=== PATIENT | female | born 1960 | race Caucasian/White ===

== ENCOUNTER → 2017-08-29 10:00 | Outpatient (REF) | payer OTHER, SELFPAY ==
[2017-08-29 13:59] LABS: Basophils # 0.1 K/mm3 (0-0.2); Basophils % 0.8 % (0.1-2.0); Eosinophils # 0.3 K/mm3 (0.0-0.4); Eosinophils % 3.5 % (0.1-12.0); Hematocrit 46.3 % (37.0-47.0); Hemoglobin 14.7 g/dL (12.2-16.2); Lymphocytes # 2.1 K/mm3 (0.7-4.5); Lymphocytes % 25.8 K/mm3 (10-50); Mean Corpuscular HGB Conc 31.6 g/dL (31.8-35.4); Mean Corpuscular Volume 91.8 fl (81-99); Mean Platelet Volume 9.4 fl (7.4-10.4); Monocytes # 0.4 K/mm3 (0.1-1.0); Monocytes % 5.4 % (1.7-9.3); Neutrophils # 5.2 K/mm3 (1.8-7.8); Neutrophils % 64.4 % (37.0-80.0); Platelet Count 282 K/mm3 (142-424); Red Blood Count 5.05 M/mm3 (4.20-5.40); Red Cell Distribution Width 13.5 % (11.5-17.5); White Blood Count 8.1 K/mm3 (4.8-10.8)
[2017-08-29 14:07] LABS: Hemoglobin A1C 5.3 % (0.0-7.0)
[2017-08-29 15:17] LABS: Alanine Aminotransferase 29 U/L (12-78); Albumin Level 3.9 gm/dL (3.4-5.0); Albumin/Globulin Ratio 1.4 (1.1-1.8); Alkaline Phosphatase 83 U/L (46-116); Anion Gap 10.5 mEq/L (5-15); Aspartate Amino Transferase 16 U/L (15-37); Bilirubin,Total 0.5 mg/dL (0.2-1.0); Blood Urea Nitrogen 17 mg/dL (7-18); Calcium 9.4 mg/dL (8.5-10.1); Carbon Dioxide 30 mmol/L (21.0-32.0); Chloride 106 mmol/L (98-107); Chol/HDL Ratio 2.7 (1-3.5); Cholesterol 168 mg/dL (140-200); Creatinine,Serum 0.55 mg/dL (0.55-1.02); Estimated Glomerular Filt Rate 114 ml/min (>60); Free T4 (Free Thyroxine) 0.94 ng/dl (0.76-1.46); GFR (African American) 138 ML/MIN (>60); Globulin 2.7 gm/dl (1.3-3.2); Glucose 89 mg/dL (74-106); HDL Cholesterol 62 mg/dL (29-89); LDL Cholesterol 94 mg/dL (0-130); Potassium 4.5 mmoL/L (3.5-5.1); Sodium 142 mmol/L (136-145); Thyroid Stimulating Hormone 2.26 uIU/ml (0.358-3.740); Total Protein,Serum 6.6 gm/dL (6.4-8.2); Triglycerides 62 mg/dL (30-200); VLDL Cholesterol 12 mg/dL (0-40)
[2017-08-29 15:51] LABS: Amphetamine/Metha Screen,Urine Negative ng/mL (<1000); Barbiturates Screen,Urine Negative ng/mL (<200); Benzodiazepines Screen,Urine Negative ng/mL (200); Cannabinoid Screen,Urine Negative ng/mL (<50); Cocaine Screen,Urine Negative ng/g (<300); Methadone Screen,Urine Negative ng/mL (<300); Opiate Screen,Urine Negative ng/mL (<300); Phencyclidine Screen,Urine Negative ng/mL (<25)
[2017-08-31 06:45] LABS: Vitamin D 25 Hydroxy 9.9 ng/mL (30.0-100.0)
== END ==
LOC: LAB 10:00
PROVIDERS: Visit Provider Nurse Practitioner Family
DX: R53.83 Other fatigue (principal); Z79.899 Other long term (current) drug therapy
CPT/HCPCS: 80053; 80061; 80305; 82652; 83036; 84439; 84443; 85025

== ENCOUNTER → 2018-01-06 08:54 | Outpatient (CLI) | payer OTHER, SELFPAY ==
[2018-01-06 14:12] LABS: Amphetamine/Metha Screen,Urine Negative ng/mL (<1000); Barbiturates Screen,Urine Negative ng/mL (<200); Benzodiazepines Screen,Urine Negative ng/mL (<200); Cannabinoid Screen,Urine Negative ng/mL (<50); Cocaine Screen,Urine Negative ng/mL (<300); Methadone Screen,Urine Negative ng/mL (<300); Opiate Screen,Urine Negative ng/mL (<300); Phencyclidine Screen,Urine Negative ng/mL (<25)
== END ==
PROVIDERS: Visit Provider Nurse Practitioner Family
DX: Z79.899 Other long term (current) drug therapy (principal)
CPT/HCPCS: 80305

== ENCOUNTER → 2019-04-02 13:03 | Outpatient (POV) | payer BC, SELFPAY | PROVIDERS: Visit Provider Specialist | DX: M79.642 Pain in left hand (principal); M79.641 Pain in right hand; R20.0 Anesthesia of skin; R20.2 Paresthesia of skin | CPT/HCPCS: 95886; 95909 ==

== ENCOUNTER → 2019-11-02 15:48 | Outpatient (CLI) | payer OTHER, SELFPAY ==
--- NOTE | 2019-11-02 15:53 | XR_ITS ---
PROCEDURE: XR CERVICAL SPINE 3V CLINICAL INDICATION: numbess Numbness COMPARISON: And tingling of the arms FINDINGS: No fracture or dislocation. No lytic or blastic change. There is normal mineralization. There is degenerative disc disease at C5-C6 C6-C7 and C7-T1. There is mild facet arthritic changes from C7-T1. Other findings:None. IMPRESSION: Degenerative changes otherwise negative Dictated by: Go Bob MD 11/02/2019 16:11 Electronically signed by Go Bob MD in [place] 11/02/2019 16:11
== END ==
PROVIDERS: PCP Nurse Practitioner Family; Visit Provider Nurse Practitioner Family
DX: R20.0 Anesthesia of skin (principal)
CPT/HCPCS: 72040

== ENCOUNTER → 2020-01-01 13:44 | Outpatient (CLI) | payer OTHER, SELFPAY ==
[2020-01-01 14:03] LABS: Alanine Aminotransferase 30 U/L (12-78); Albumin Level 4.3 g/dl (3.5-5.0); Albumin/Globulin Ratio 1.6 (1.1-1.8); Alkaline Phosphatase 97 U/L (38-126); Anion Gap 13.8 mEq/L (5-15); Aspartate Amino Transferase 26 U/L (14-36); Bilirubin,Total 0.2 mg/dl (0.2-1.3); Blood Urea Nitrogen 18 mg/dl (7-17); Calcium 10.2 mg/dl (8.4-10.2); Carbon Dioxide 28 mmol/L (22.0-30.0); Chloride 99 mmol/L (98-107); Chol/HDL Ratio 2.5 (1-3.5); Cholesterol 173 mg/dl (140-200); Estimated Glomerular Filt Rate 102 ml/min (>60); GFR (African American) 123 ML/MIN (>60); Globulin 2.7 g/dL (1.3-3.2); Glucose 114 mg/dl (74-100); HDL Cholesterol 70 mg/dl (40-60); Potassium 3.8 mmoL/L (3.5-5.1); Sodium 137 mmol/L (136-145); Triglycerides 244 mg/dl (30-150); VLDL Cholesterol 49 mg/dL (0-40)
[2020-01-01 14:15] LABS: Direct LDL Cholesterol 92.25 mg/dL (100-129)
[2020-01-01 14:21] LABS: Free T4 (Free Thyroxine) 1.02 ng/dl (0.78-2.19)
[2020-01-01 14:22] LABS: 25-OH Vitamin D, Total < 12.8 ng/mL (30-100)
[2020-01-01 14:29] LABS: Basophils # 0.1 K/mm3 (0-0.2); Basophils % 0.6 % (0.1-2.0); Eosinophils # 0.3 K/mm3 (0.0-0.4); Hemoglobin 15.2 g/dL (12.2-16.2); Lymphocytes # 2.4 K/mm3 (0.7-4.5); Lymphocytes % 22.3 % (10-50); Mean Corpuscular HGB Conc 33.9 g/dL (31.8-35.4); Mean Corpuscular Hemoglobin 30.4 pg (27.0-31.2); Mean Corpuscular Volume 89.6 fl (81-99); Monocytes # 0.5 K/mm3 (0.1-1.0); Neutrophils # 7.4 K/mm3 (1.8-7.8); Neutrophils % 69.1 % (37.0-80.0); Platelet Count 379 K/mm3 (142-424); Red Blood Count 5.02 M/mm3 (4.20-5.40); Red Cell Distribution Width 13.7 % (11.5-17.5); White Blood Count 10.7 K/mm3 (4.8-10.8)
[2020-01-01 14:35] LABS: Thyroid Stimulating Hormone 2.47 uIU/mL (0.465-4.68)
== END ==
LOC: LAB.DROPOF 13:45
PROVIDERS: Visit Provider Emergency Medicine
DX: E55.9 Vitamin D deficiency, unspecified (principal); E66.9 Obesity, unspecified
CPT/HCPCS: 80053; 80061; 82306; 84439; 84443; 85025

== ENCOUNTER → 2020-08-08 17:30 | Outpatient (CLI) | payer BC, SELFPAY ==
--- NOTE | 2020-08-08 17:40 | XR_ITS ---
PROCEDURE: XR FOOT LT MIN 3V CLINICAL INDICATION: L Foot pain COMPARISON: No exams were available for comparison FINDINGS: No fracture or dislocation. No lytic or blastic change. There is normal mineralization. The joint spaces are well-preserved. No significant degenerative/arthritic changes. No erosive changes evident. Other findings:There is a small calcaneal spur. Small ossicles present along the dorsal aspect of the talonavicular joint and could be due to an old injury. There are mild osteoarthritic changes of the ankle. IMPRESSION: No acute findings. Dictated by: Go Bob MD 08/08/2020 22:27 Go Bob MD in [place] 08/08/2020 22:27
== END ==
LOC: RAD 17:34
PROVIDERS: PCP Emergency Medicine; Visit Provider Nurse Practitioner Family
DX: M79.672 Pain in left foot (principal)
CPT/HCPCS: 73630

== ENCOUNTER → 2020-09-04 14:57 | Outpatient (CLI) | payer BC, SELFPAY ==
--- NOTE | 2020-09-04 15:00 | XR_ITS ---
PROCEDURE: XR FOOT WT BEARING LT 3V CLINICAL INDICATION: foot pain Ankle pain COMPARISON: CR XR FOOT LT MIN 3V from 08/08/2020 CR XR ANKLE WT BEARING LT MIN 3V from 09/04/2020 FINDINGS: Normal alignment. Small calcaneal spur. No acute fracture or dislocation. Ununited ossification center noted at the base of the 5th metatarsal. There is minimal spurring at the distal aspect of the medial malleolus. Talar dome has an unremarkable appearance. IMPRESSION: No acute findings. Dictated by: Go Bob MD 09/04/2020 16:01 Go Bob MD in [place] 09/04/2020 16:01
== END ==
LOC: RAD 14:58
PROVIDERS: PCP Emergency Medicine; Visit Provider Podiatrist
DX: M79.672 Pain in left foot (principal)
CPT/HCPCS: 73610; 73630

== ENCOUNTER 2021-06-14 21:01 | Emergency (ER) | payer BC, SELFPAY ==
[2021-06-14 21:01] VITALS: BP 159/92; PULSE 93; RESP 20; TEMP 37.1; O2SAT 99; BMI 102.7; BMI 46.5
--- NOTE | 2021-06-14 21:01 | ECG_ITS ---
APPROVED REPORT Exam: Resting ECG HR:91 bpm ECG Measurements Heart Rate 91 AXES ME 176 P -11 QRSd 91 QRS -32 QT 333 T 51 QTc 382 Conclusion SINUS RHYTHM LEFT AXIS DEVIATION [QRS AXIS < -30] POSSIBLE ANTERIOR MYOCARDIAL INFARCTION , OF INDETERMINATE AGE [30 ms Q WAVE IN V3/V4, OR R < 0.2 mV IN V4] ABNORMAL ECG UNCONFIRMED REPORT Electronically signed by : Larry Fisher MD 06/15/2021 17:26:49
--- NOTE | 2021-06-14 21:05 | XR_ITS ---
PROCEDURE INFORMATION: Exam: XR Chest Exam date and time: 06/14/2021 9:05 PM Age: 60 years old Clinical indication: Pain; Chest pressure; Additional info: Chest pain TECHNIQUE: Imaging protocol: XR of the chest. Views: 2 views. COMPARISON: CR XR CERVICAL SPINE 3V 11/02/2019 3:56 PM FINDINGS: Lungs: Unremarkable. No consolidation. Pleural spaces: Unremarkable. No pleural effusion. No pneumothorax. Heart/Mediastinum: Unremarkable. No cardiomegaly. Bones/joints: Unremarkable. Organs: Cholecystectomy has been performed. IMPRESSION: No acute findings.
--- NOTE | 2021-06-14 21:17 | PC.NURSE ---
Pt gone to rad
--- NOTE | 2021-06-14 21:20 | PC.NURSE ---
Pt back from rad
[2021-06-14 21:29] LABS: Basophils # 0.3 K/mm3 (0-0.2); Basophils % 2.3 % (0.1-2.0); Eosinophils # 0.2 K/mm3 (0.0-0.4); Eosinophils % 1.5 % (0.1-12.0); Hematocrit 48.6 % (37.0-47.0); Hemoglobin 15.2 g/dL (12.2-16.2); Lymphocytes % 8.9 % (10-50); Mean Corpuscular HGB Conc 31.2 g/dL (31.8-35.4); Mean Corpuscular Hemoglobin 29.1 pg (27.0-31.2); Mean Corpuscular Volume 93.3 fl (81-99); Mean Platelet Volume 8.6 fl (7.4-10.4); Monocytes # 0.7 K/mm3 (0.1-1.0); Monocytes % 5.8 % (1.7-9.3); Neutrophils # 9.2 K/mm3 (1.8-7.8); Neutrophils % 81.5 % (37.0-80.0); Platelet Count 290 K/mm3 (142-424); Red Blood Count 5.21 M/mm3 (4.20-5.40); Red Cell Distribution Width 14.2 % (11.5-17.5); White Blood Count 11.3 K/mm3 (4.8-10.8)
[2021-06-14 21:32] LABS: Influenza A, PCR Not Detected (NotDetected); Influenza B, PCR Not Detected (NotDetected)
[2021-06-14 21:32] LABS: Amylase 58 U/L (30-110); Anion Gap 12.2 mEq/L (5-15); Blood Urea Nitrogen 14 mg/dl (7-17); Calcium 10.1 mg/dl (8.4-10.2); Carbon Dioxide 28 mmol/L (22.0-30.0); Chloride 101 mmol/L (98-107); Creatinine Clearance Estimated 53 mL/min (50-200); Estimated Glomerular Filt Rate 85 ml/min (>60); GFR (African American) 103 ML/MIN (>60); Glucose 108 mg/dl (74-100); Potassium 4.2 mmoL/L (3.5-5.1); Sodium 137 mmol/L (136-145)
[2021-06-14 21:37] LABS: Lipase 49 U/L (23-300)
[2021-06-14 21:38] LABS: C-Reactive Protein 24.7 mg/L (0-4)
[2021-06-14 21:46] LABS: NT Pro Brain Natriuretic Pep. 54.3 pg/mL (0-125)
[2021-06-14 21:49] LABS: Troponin I < 0.01 ng/ml (0.00-0.034)
[2021-06-14 21:55] LABS: Procalcitonin 0.063 ng/mL (0.0-2.0)
[2021-06-14 22:15] LABS: Erythrocyte Sedimentation Rate 10 mm/hr (0-30)
[2021-06-14 22:18] LABS: Coronavirus 19, PCR Detected (NotDetected)
[2021-06-14 22:37] LABS: Alanine Aminotransferase 31 U/L (12-78); Albumin Level 4.3 g/dl (3.5-5.0); Alkaline Phosphatase 79 U/L (38-126); Aspartate Amino Transferase 28 U/L (14-36); Bilirubin,Direct 0.3 mg/dl (0.0-0.4); Bilirubin,Indirect 0.5 mg/dL (0.0-0.9); Bilirubin,Total 0.8 mg/dl (0.2-1.3); Bilirubin,Unconjugated 0.5 mg/dL (0.0-1.1); Total Protein,Serum 7.4 g/dl (6.3-8.2)
--- NOTE | 2021-06-14 22:39 | HMH.EDSOB ---
ED Disposition Clinical Impression: COVID-19 Disposition: Home, Self-Care Condition on Discharge: Good Instructions: DI for COVID-19 (Suspected or Confirmed ) Additional Instructions: call pcp for follow up Prescriptions: dexAMETHasone [Decadron] 6 mg PO DAILY #6 tab Transmission Status: Pending to [facility] Referrals: Jero Alvarado MD [Primary Care Provider] - - Critical Care Critical Care Time: No Attestation: On 06/14/21, the high probability of a clinically significant, sudden or life threatening deterioration of the following system(s) required my full and direct attention, intervention and personal management. The time I documented below is in addition to time spent performing reported procedures but includes the following listed in this critical care notation. Medical Decision Making - Medical Records Medical records reviewed: Yes: I reviewed the patient's medical records. - Zac Inquiry Pt receiving controlled substance: No Vital Signs: 06/14/21 21:01 Temperature 98.7 F Temperature Source Oral Pulse Rate [Right Radial] 93 H Respiratory Rate 20 Blood Pressure [Right Arm] 159/92 H Blood Pressure Mean [Right Arm] 114 02 Sat by Pulse Oximetry 99 Oxygen Delivery Method Room Air - Lab Data Lab results reviewed: Yes: I reviewed the patient's lab results. Lab Results 06/14/21 21:17: SARS-CoV-2 (PCR) Detected A, Influenza A Untype (PCR) Not detected, Influenza Type B (PCR) Not detected 06/14/21 21:18: WBC 11.3 H, RBC 5.21, Hgb 15.2, Hct 48.6 H, MCV 93.3, MCH 29.1, MCHC 31.2 L, RDW 14.2, Plt Count 290, MPV 8.6, Neut % (Auto) 81.5 H, Lymph % (Auto) 8.9 L, [place] % (Auto) 5.8, Eos % (Auto) 1.5, Baso % (Auto) 2.3 H, Neut # (Auto) 9.2 H, Lymph # (Auto) 1.0, [place] # (Auto) 0.7, Eos # (Auto) 0.2, Baso # (Auto) 0.3 H 06/14/21 21:18: Sodium 137, Potassium 4.2, Chloride 101, Carbon Dioxide 28, Anion Gap 12.2, BUN 14, Creatinine 0.70, Estimated Creat Clear 53, Estimated GFR 85, Est GFR ( Amer) 103, Glucose 108 H, Calcium 10.1, Troponin I < 0.01, C-Reactive Protein 24.7 H, NT-Pro-B Natriuret Pep 54.3, Amylase 58 06/14/21 21:18: ESR 10 06/14/21 21:18: Lipase 49, Procalcitonin 0.063 06/14/21 21:18: Total Bilirubin 0.8, Direct Bilirubin 0.3, Conjugated Bilirubin 0.0, Indirect Bilirubin 0.5, Unconjugated Bilirubin 0.5, AST 28, ALT 31, Alkaline Phosphatase 79, Total Protein 7.4, Albumin 4.3 Result diagrams: 06/14/21 21:18 06/14/21 21:18 Orders (Tests/Meds): ED MEDICATIONS Generic Name Dose Route Start Last Admin Trade Name Freq PRN Reason Stop Dose Admin Sodium Chloride 1,000 mls @ 999 mls/hr 06/14/21 21:15 06/14/21 21:18 Sod Chlor 0.9% 1000ml Bag IV 06/14/21 22:15 999 mls/hr .Q1H1M LATHA Administration Sodium Chloride 8 ml 06/14/21 21:08 Sodium Chloride 0.9% 10ml Vial IV 07/14/21 21:07 NEEDED PRN dilute pepcid Discontinued Medications Generic Name Dose Route Start Last Admin Trade Name Freq PRN Reason Stop Dose Admin Aspirin 324 mg 06/14/21 21:06 06/14/21 21:19 Aspirin 81mg Chewable Tablet PO 06/14/21 21:07 324 mg ONCE ONE Administration Dexamethasone Sodium Phosphate 10 mg 06/14/21 22:47 Dexamethasone 4mg/Ml 5ml Mdv IV 06/14/21 22:48 ONCE ONE Famotidine 20 mg 06/14/21 21:08 06/14/21 21:19 Famotidine 20mg/2ml Vial IV 06/14/21 21:09 20 mg ONCE ONE Administration Metoclopramide HCl 10 mg 06/14/21 21:16 06/14/21 21:20 Metoclopramide Hcl 10mg/2ml Vial IVP 06/14/21 21:17 10 mg ONCE ONE Administration Ondansetron HCl 4 mg 06/14/21 21:08 06/14/21 21:19 Ondansetron 4mg/2ml Vial IV 06/14/21 21:09 4 mg ONCE ONE Administration ORDERS Category Date Time Status Troponin I Q3H Lab 06/15/21 00:15 Ordered Troponin I Q3H Lab 06/15/21 03:15 Ordered Urinalysis and Microscopic Stat Lab 06/14/21 21:05 Ordered - Radiology Data #1 Image(s): Chest Image Reviewed: Yes I have revie
[2021-06-14 23:11] VITALS: BP 151/57; PULSE 82; RESP 19; TEMP 37.1; O2SAT 98
== END 2021-06-14 23:24 | disposition home or self-care (01) ==
PROVIDERS: Emergency Provider Emergency Medicine; PCP Emergency Medicine
DX: U07.1 COVID-19 (principal); R07.9 Chest pain, unspecified; I10 Essential (primary) hypertension; E11.9 Type 2 diabetes mellitus without complications; F41.8 Other specified anxiety disorders; Z88.0 Allergy status to penicillin; Z79.899 Other long term (current) drug therapy
CPT/HCPCS: 71046; 80048; 80076; 82150; 83690; 83880; 84145; 84484; 85025; 85651; 86140; 93005; 99283; C9803; J2405; U0003; U0005

== ENCOUNTER 2022-04-23 10:51 | Emergency (ER) | payer BC, SELFPAY ==
--- NOTE | 2022-04-23 11:15 | EXP.UTC ---
Discharge Plan Prescriptions Prescriptions: No Action meloxicam 7.5 mg tablet 7.5 mg PO DAILY 30 Days Qty: 30 2RF sulfamethoxazole-trimethoprim [Bactrim DS] 800-160 mg tablet 1 tab PO BID 10 Days Qty: 20 0RF mupirocin 2 % ointment 1 applic topical TID Qty: 22 0RF diclofenac sodium [Voltaren] 1 % gel 4 g TOPICAL QID Qty: 100 2RF Rx Instructions: apply to single knee, ankle, foot; for foot includes sole/toes/top of foot fluticasone propionate [Flonase Allergy Relief] 50 mcg/actuation spray,suspension 1 spray INTRANASAL QDAY 30 Days Qty: 9.9 0RF Rx Instructions: administer into each nostril metformin 500 mg tablet 500 mg PO BID Qty: 60 2RF lisinopril-hydrochlorothiazide 10-12.5 mg tablet See Rx Instructions .ROUTE .COMPLEX Qty: 30 3RF Dose Instruction: TAKE ONE TABLET BY MOUTH ONCE A DAY Rx Instructions: TAKE ONE TABLET BY MOUTH ONCE A DAY cholecalciferol (vitamin D3) 25 mcg (1,000 unit) tablet See Rx Instructions .ROUTE .COMPLEX Qty: 30 3RF Dose Instruction: TAKE ONE TABLET BY MOUTH ONCE A DAY WITH A MEAL Rx Instructions: TAKE ONE TABLET BY MOUTH ONCE A DAY WITH A MEAL ergocalciferol (vitamin D2) 1,250 mcg (50,000 unit) capsule See Rx Instructions .ROUTE .COMPLEX Qty: 4 3RF Dose Instruction: TAKE ONE CAPSULE BY MOUTH EVERY WEEK Rx Instructions: TAKE ONE CAPSULE BY MOUTH EVERY WEEK citalopram 20 mg tablet See Rx Instructions .ROUTE .COMPLEX Qty: 30 3RF Dose Instruction: TAKE ONE TABLET BY MOUTH ONCE A DAY Rx Instructions: TAKE ONE TABLET BY MOUTH ONCE A DAY Referrals Follow up/Referrals: Jero Alvarado MD [Primary Care Provider] - See instructions Discharge ED Provider: Lloyd Olivier [facility] [place] HPI General Stated complaint: possible lymph nodes swollen, sore throat Time Seen by Provider: 04/23/22 11:15 History of Present Illness Provider Complaint: She c/o sore throat and sinus congestion for the past 5 days. She has had chilling but no documented fever. She denies chest congestion and significant cough. She also states that she has swollen lymph nodes in her neck. Related Data Previous Rx's Medication Instructions Recorded diclofenac sodium 1 % topical gel 4 g topical QID #100 grams 09/04/20 (Voltaren) meloxicam 7.5 mg tablet 7.5 mg PO DAILY pain 30 days #30 10/02/20 tabs fluticasone propionate 50 1 spray intranasal QDAY 30 days 05/28/21 mcg/actuation nasal #9.9 grams spray,suspension (Flonase Allergy Relief) metformin 500 mg tablet 500 mg PO BID #60 tabs 06/10/21 cholecalciferol (vitamin D3) 25 See Rx Instructions .Route 11/27/21 mcg (1,000 unit) tablet .COMPLEX #30 tabs ergocalciferol (vitamin D2) 1,250 See Rx Instructions .Route 11/27/21 mcg (50,000 unit) capsule .COMPLEX #4 caps lisinopril 10 See Rx Instructions .Route 11/27/21 mg-hydrochlorothiazide 12.5 mg .COMPLEX #30 tabs tablet citalopram 20 mg tablet See Rx Instructions .Route 01/14/22 .COMPLEX #30 tabs mupirocin 2 % topical ointment 1 applic topical TID #22 grams 01/20/22 sulfamethoxazole 800 1 tab PO BID 10 days #20 tabs 01/20/22 mg-trimethoprim 160 mg tablet (Bactrim DS) Allergies Allergy/AdvReac Type Severity Reaction Status Date / Time Clarithromycin Allergy Unknown Uncoded 01/20/22 09:47 Macrolide/Antibacterial Allergy Unknown Uncoded 01/20/22 09:47 Opioid Allergy Unknown Uncoded 01/20/22 09:47 Penicillin Allergy Unknown Uncoded 01/20/22 09:47 [facility] Disclaimer: The information contained in this section may have been updated after the patient was seen, as this information can be updated by other users. Medical History Calcaneal spur, left Chronic pain of left ankle Decreased pedal pulses Edema of left ankle Foot pain History of ankle sprain Left ankle instability Left foot pain Other specified symptoms and signs involving the circulatory and
[2022-04-23 11:16] VITALS: BP 143/70; PULSE 92; RESP 17; TEMP 37.8; O2SAT 95; BMI 49.9
[2022-04-23 11:22] LABS: UTC Strep Screen (Rapid) Negative (Negative)
[2022-04-23 12:23] VITALS: BP 143/70; PULSE 92; RESP 17; TEMP 37.8
== END 2022-04-23 12:23 | disposition home or self-care (01) ==
PROVIDERS: Emergency Provider Nurse Practitioner Family; PCP Emergency Medicine
DX: J32.9 Chronic sinusitis, unspecified (principal); J02.9 Acute pharyngitis, unspecified
CPT/HCPCS: 87880; 99212; G0463

== ENCOUNTER 2022-04-26 07:37 | Emergency (ER) | payer BC, SELFPAY ==
[2022-04-26 07:38] VITALS: BP 149/71; PULSE 92; RESP 18; TEMP 37.2; O2SAT 96; BMI 49.9
[2022-04-26 08:00] VITALS: BP 143/83; PULSE 89; O2SAT 98
--- NOTE | 2022-04-26 08:00 | PC.NURSE ---
CAITLIN CHAPMAN at for patient eval
[2022-04-26 08:40] LABS: Chloride 104 mmol/L (98-107); Sodium 141 mmol/L (136-145)
[2022-04-26 08:41] LABS: Potassium 3.7 mmoL/L (3.5-5.1)
[2022-04-26 08:43] LABS: Alanine Aminotransferase 35 U/L (12-78); Albumin Level 4.3 g/dl (3.5-5.0); Albumin/Globulin Ratio 1.3 (1.1-1.8); Alkaline Phosphatase 95 U/L (38-126); Anion Gap 12.7 mEq/L (5-15); Aspartate Amino Transferase 28 U/L (14-36); Bilirubin,Total 0.3 mg/dl (0.2-1.3); Blood Urea Nitrogen 17 mg/dl (7-17); Carbon Dioxide 28 mmol/L (22.0-30.0); Creatinine Clearance Estimated 52 mL/min (50-200); Estimated Glomerular Filt Rate 85 ml/min (>60); GFR (African American) 103 ML/MIN (>60); Globulin 3.2 g/dL (1.3-3.2); Total Protein,Serum 7.5 g/dl (6.3-8.2)
[2022-04-26 08:44] LABS: Calcium 10.6 mg/dl (8.4-10.2); Glucose 80 mg/dl (74-100)
[2022-04-26 08:45] LABS: Basophils # 0.2 K/mm3 (0-0.2); Basophils % 1.3 % (0.1-2.0); Eosinophils # 0.4 K/mm3 (0.0-0.4); Eosinophils % 2.9 % (0.1-12.0); Hematocrit 50.7 % (37.0-47.0); Hemoglobin 16.5 g/dL (12.2-16.2); Lymphocytes # 2.8 K/mm3 (0.7-4.5); Lymphocytes % 20.6 % (10-50); Mean Corpuscular HGB Conc 32.5 g/dL (31.8-35.4); Mean Corpuscular Volume 89.4 fl (81-99); Mean Platelet Volume 8.7 fl (7.4-10.4); Monocytes # 1.1 K/mm3 (0.1-1.0); Monocytes % 8.5 % (1.7-9.3); Neutrophils # 8.9 K/mm3 (1.8-7.8); Neutrophils % 66.6 % (37.0-80.0); Platelet Count 383 K/mm3 (142-424); Red Blood Count 5.67 M/mm3 (4.20-5.40); Red Cell Distribution Width 13.9 % (11.5-17.5); White Blood Count 13.4 K/mm3 (4.8-10.8)
[2022-04-26 08:49] LABS: C-Reactive Protein 36.3 mg/L (0-4)
[2022-04-26 09:04] VITALS: BP 143/83; PULSE 89; RESP 18; TEMP 37.2; O2SAT 98
--- NOTE | 2022-04-26 09:07 | HMH.EDGENADL ---
Discharge Plan Disposition Patient Disposition: Home, Self-Care Condition: Good Prescriptions Prescriptions: New hydrocortisone 1 % ointment 1 applic topical BID PRN (Reason: itching) Qty: 28.35 0RF No Action meloxicam 7.5 mg tablet 7.5 mg PO DAILY 30 Days Qty: 30 2RF diclofenac sodium [Voltaren] 1 % gel 4 g TOPICAL QID Qty: 100 2RF Rx Instructions: apply to single knee, ankle, foot; for foot includes sole/toes/top of foot fluticasone propionate [Flonase Allergy Relief] 50 mcg/actuation spray,suspension 1 spray INTRANASAL QDAY 30 Days Qty: 9.9 0RF Rx Instructions: administer into each nostril metformin 500 mg tablet 500 mg PO BID Qty: 60 2RF lisinopril-hydrochlorothiazide 10-12.5 mg tablet See Rx Instructions .ROUTE .COMPLEX Qty: 30 3RF Dose Instruction: TAKE ONE TABLET BY MOUTH ONCE A DAY Rx Instructions: TAKE ONE TABLET BY MOUTH ONCE A DAY cholecalciferol (vitamin D3) 25 mcg (1,000 unit) tablet See Rx Instructions .ROUTE .COMPLEX Qty: 30 3RF Dose Instruction: TAKE ONE TABLET BY MOUTH ONCE A DAY WITH A MEAL Rx Instructions: TAKE ONE TABLET BY MOUTH ONCE A DAY WITH A MEAL ergocalciferol (vitamin D2) 1,250 mcg (50,000 unit) capsule See Rx Instructions .ROUTE .COMPLEX Qty: 4 3RF Dose Instruction: TAKE ONE CAPSULE BY MOUTH EVERY WEEK Rx Instructions: TAKE ONE CAPSULE BY MOUTH EVERY WEEK citalopram 20 mg tablet See Rx Instructions .ROUTE .COMPLEX Qty: 30 3RF Dose Instruction: TAKE ONE TABLET BY MOUTH ONCE A DAY Rx Instructions: TAKE ONE TABLET BY MOUTH ONCE A DAY benzonatate [benzonatate] 100 mg capsule 100 mg PO TIDP PRN (Reason: Cough) Qty: 30 0RF methylprednisolone 4 mg Tablets,Dose Pack 4 mg PO DIRECTED Qty: 21 0RF cefdinir 300 mg capsule 300 mg PO BID Qty: 20 0RF Referrals Follow up/Referrals: Jero Alvarado MD [Primary Care Provider] - See instructions Clinical Impressions Clinical Impression: Malar rash Instructions Patient Instructions: DI for Rash Discharge ED Provider: Ray Howe General Adult HPI General Chief complaint: Allergic Reaction Stated complaint: swollen face, allergic reaction possibly Time Seen by Provider: 04/26/22 08:10 Mode of Arrival: Ambulatory Source of Information: Patient Limitations: No Limitations Description of Symptoms (Recalled from ER Triage Doc. by RN): Pt reports taking cefdinir and solumedrol as prescribed started tuesday after being seen in [facility]. Pt reports woke up tuesday morning with redness and swelling to face. Pt presents to ED today with dark redness to facial cheeks and nose are up to forhead and swelling in same areas. Pt denies SOA. Pt reports last dose of cefdinir was yesterday morning. History of Present Illness HPI narrative: Patient is a 61-year-old female with past medical history of hypertension, obesity who presents with concern for facial rash. She says that she was recently seen at the [facility] on Tuesday. She was diagnosed with a sinus infection and placed on cefdinir and a Medrol Dosepak. She says that over the weekend her facial rash has gotten substantially worse. She says that it is getting substantially more red and starting to go up her face more. She says that this is never happened in the past. Denies any shortness of breath. Denies any difficulty breathing. She says that she feels like her sinuses are full. Denies any autoimmune disease. Related Data Previous Rx's Medication Instructions Recorded diclofenac sodium 1 % topical gel 4 g topical QID #100 grams 09/04/20 (Voltaren) meloxicam 7.5 mg tablet 7.5 mg PO DAILY pain 30 days #30 10/02/20 tabs fluticasone propionate 50 1 spray intranasal QDAY 30 days 05/28/21 mcg/actuation nasal #9.9 grams spray,suspension (Flonase Allergy Relief) metformin 500 mg tablet 500 mg PO BID #60 tabs 06/10/21 cholecalciferol (vitamin D3) 25 See Rx Inst
[2022-04-26 09:23] LABS: Erythrocyte Sedimentation Rate 13 mm/hr (0-30)
== END 2022-04-26 09:04 | disposition home or self-care (01) ==
PROVIDERS: Emergency Provider Student in an Organized Health Care Education/Training Program; PCP Emergency Medicine
DX: R21 Rash and other nonspecific skin eruption (principal); Z88.0 Allergy status to penicillin; Z88.1 Allergy status to other antibiotic agents; Z88.5 Allergy status to narcotic agent
CPT/HCPCS: 80053; 85025; 85651; 86140; 99283

== ENCOUNTER 2024-11-19 10:53 | Outpatient (CLI) | payer MEDICARE, SELFPAY ==
[2024-11-19 19:32] LABS: Hematocrit 48.3 % (37.0-47.0); Hemoglobin 15.1 g/dL (12.2-16.2); Immature Granulocytes % 1.2 %; Mean Corpuscular HGB Conc 31.3 g/dL (31.8-35.4); Mean Corpuscular Hemoglobin 28.0 pg (27.0-31.2); Mean Corpuscular Volume 89.4 fl (81-99); Nucleated Red Blood Cells % 0 %; Platelet Count 272 K/mm3 (142-424); Red Blood Count 5.40 M/mm3 (4.20-5.40); Red Cell Distribution Width-SD 48.9 fL; White Blood Count 10.0 K/mm3 (4.8-10.8)
[2024-11-19 20:19] LABS: Alanine Aminotransferase 30 U/L (12-78); Albumin Level 4.3 g/dl (3.5-5.0); Albumin/Globulin Ratio 1.5 (1.1-1.8); Alkaline Phosphatase 86 U/L (38-126); Anion Gap 18.3 mEq/L (5-15); Aspartate Amino Transferase 27 U/L (14-36); Bilirubin,Total 0.6 mg/dl (0.2-1.3); Blood Urea Nitrogen 16 mg/dl (7-17); Calcium 9.5 mg/dl (8.4-10.2); Carbon Dioxide 25 mmol/L (22.0-30.0); Chloride 97 mmol/L (98-107); Cholesterol 184 mg/dl (140-200); Creatinine,Serum 0.70 mg/dl (0.52-1.04); Estimated Glomerular Filt Rate 84 ml/min (>60); GFR (African American) 102 ML/MIN (>60); Globulin 2.8 g/dL (1.3-3.2); Glucose 91 mg/dl (74-100); HDL Cholesterol 64 mg/dl (40-60); Potassium 4.3 mmoL/L (3.5-5.1); Sodium 136 mmol/L (136-145); Total Protein,Serum 7.1 g/dl (6.3-8.2); Triglycerides 124 mg/dl (30-150)
[2024-11-19 20:38] LABS: 25-OH Vitamin D, Total 18.6 ng/mL (30-100)
[2024-11-19 20:57] LABS: Thyroid Stimulating Hormone 5.65 uIU/mL (0.465-4.68)
[2024-11-19 22:00] LABS: Hemoglobin A1C 6.7 % (4.0-6.0)
== END 2024-11-19 23:59 | disposition home or self-care (01) ==
LOC: LAB.DROPOF 11-20 07:38
PROVIDERS: PCP Family Medicine; Visit Provider Family Medicine
DX: R73.9 Hyperglycemia, unspecified (principal); I10 Essential (primary) hypertension; E55.9 Vitamin D deficiency, unspecified; E66.01 Morbid (severe) obesity due to excess calories
CPT/HCPCS: 80053; 80061; 82306; 83036; 84443; 85025

== ENCOUNTER 2024-12-21 10:56 | Outpatient (CLI) | payer MEDICARE, SELFPAY ==
[2024-12-21 20:02] LABS: Free Thyroxine Index 3.0 ug/dL (5.93-13.13); T4 (Thyroxine) 11.0 ug/dl (5.53-11.0); Triiodothryronine (T3) Uptake 27 % (23.5-40.5)
[2024-12-21 20:16] LABS: Thyroid Stimulating Hormone 1.70 uIU/mL (0.465-4.68)
== END 2024-12-21 23:59 | disposition home or self-care (01) ==
LOC: LAB.DROPOF 12-24 10:56
PROVIDERS: PCP Family Medicine; Visit Provider Family Medicine
DX: E03.9 Hypothyroidism, unspecified (principal)
CPT/HCPCS: 84436; 84443; 84479

== ENCOUNTER 2025-01-23 16:20 | Outpatient (CLI) | payer MEDICARE, SELFPAY ==
[2025-01-23 20:59] LABS: Alanine Aminotransferase 39 U/L (12-78); Albumin Level 4.5 g/dl (3.5-5.0); Albumin/Globulin Ratio 1.6 (1.1-1.8); Alkaline Phosphatase 94 U/L (38-126); Anion Gap 14.5 mEq/L (5-15); Aspartate Amino Transferase 38 U/L (14-36); Bilirubin,Total 0.8 mg/dl (0.2-1.3); Blood Urea Nitrogen 12 mg/dl (7-17); Calcium 10.3 mg/dl (8.4-10.2); Carbon Dioxide 29 mmol/L (22.0-30.0); Chloride 99 mmol/L (98-107); Creatinine,Serum 0.80 mg/dl (0.52-1.04); Estimated Glomerular Filt Rate 72 ml/min (>60); GFR (African American) 87 ML/MIN (>60); Globulin 2.9 g/dL (1.3-3.2); Glucose 82 mg/dl (74-100); Potassium 4.5 mmoL/L (3.5-5.1); Sodium 138 mmol/L (136-145); Total Protein,Serum 7.4 g/dl (6.3-8.2)
== END 2025-01-23 23:59 | disposition home or self-care (01) ==
LOC: LAB.DROPOF 01-24 16:20
PROVIDERS: PCP Family Medicine; Visit Provider Family Medicine
DX: E11.9 Type 2 diabetes mellitus without complications (principal)
CPT/HCPCS: 80053